=== PATIENT | female | born 1980 | race African-American/Black ===

== ENCOUNTER 2021-05-04 12:14 | Emergency (ER) | payer BC, SELFPAY | END 2021-05-04 12:53 | disposition home or self-care (01) | LOC: NAV ERS 12:14 | DX: K04.7 Periapical abscess without sinus (principal); K02.9 Dental caries, unspecified; R59.0 Localized enlarged lymph nodes | CPT/HCPCS: 99283 ==

== ENCOUNTER 2022-05-21 10:21 | Emergency (ER) | payer SELFPAY ==
[2022-05-21 10:48] LABS: Bilirubin Negative (Negative); Blood, Urine Trace (Negative); Clarity Clear (Clear); Glucose, Urine (Dipstick) Negative (Negative); Ketone, Urine Negative (Negative); Leukocyte Small (Negative); Nitrite Negative (Negative); Protein, Urine (Dipstick) 30 mg/dL (Neg-Trace); Urobilinogen > or = 8.0 mg/dL (Less than 2)
[2022-05-21 11:04] LABS: RBC/HPF 21-50 HPF (0-3)
[2022-05-21 11:05] LABS: Bacteria/HPF Rare-Few HPF (None Seen)
[2022-05-21 11:06] LABS: Pregnancy Test - Urine (BHCG) Negative (Negative); Pregu Control Background? CLEAR/WHITE (CLR/WHITE); Pregu Control Bar Appear? YES (CONTROL BAR)
[2022-05-21] MEDS ORDERED: cefTRIAXone\\ROCEPHIN 1 GM VIAL ONE (11:06)
[2022-05-21] MEDS ORDERED: Lidocaine 1% (PF) 30 ML VIAL ONE (11:08)
[2022-05-21] MEDS ORDERED: Ibuprofen 800 MG TAB ONE (11:11)
== END 2022-05-21 11:39 | disposition home or self-care (01) ==
LOC: NAV ERS 10:21
DX: N10 Acute pyelonephritis (principal)
CPT/HCPCS: 81003; 81015; 81025; 87077; 87086; 87186; 96372; 99283; J0696; J2001

== ENCOUNTER 2025-05-07 16:14 | Emergency (ER) | payer SELFPAY ==
[2025-05-07] MEDS ORDERED: Orphenadrine Citrate 60 MG/2 ML VIAL ONE (16:33)
== END 2025-05-07 16:55 | disposition home or self-care (01) ==
LOC: NAV ERS 16:14
DX: M54.41 Lumbago with sciatica, right side (principal)
CPT/HCPCS: 96372; J1885; J2360

== ENCOUNTER 2025-07-07 15:48 | Emergency (ER) | payer SELFPAY | END 2025-07-07 17:32 | disposition home or self-care (01) | LOC: NAV ERS 15:48 | DX: M25.571 Pain in right ankle and joints of right foot (principal); M25.511 Pain in right shoulder | CPT/HCPCS: 99283 ==